=== PATIENT | male | born 1980 | race Two or more races ===

== ENCOUNTER 2021-09-25 18:26 | Emergency (ER) | payer MEDICAID ==
[~2021-09-25] VITALS: Ht 172.7 cm; Wt 104.3 kg
[2021-09-25] MEDS ORDERED: MAGNESIUM SULFATE 1 GM/D5W 100 ML IVPB IV ONE ×2 (18:33→20:54)
[2021-09-25] MEDS ORDERED: TRILEPTAL (18:37)
[2021-09-25] MEDS ORDERED: ALBU8HFA4 (18:37)
[2021-09-25] MEDS ORDERED: KEPPRA (18:37)
[2021-09-25 18:47] LABS: HEMATOCRIT 44.8 % (36.7-47.1); MEAN CORPUSCULAR VOLUME 94.6 fL (73.0-96.2); PLATELET COUNT (AUTO) 337 K/uL (152-348)
--- NOTE | 2021-09-25 18:57 | NUR ---
PT IS IN ROOM #1A. DR MIRANDA EVALUATED THE PT.
--- NOTE | 2021-09-25 19:00 | NUR ---
Report received from Daniel CASTANEDA. Patient AAO, NAD noted.
[2021-09-25 19:01] LABS: MAGNESIUM 1.9 mg/dL (1.8-2.4)
--- NOTE | 2021-09-25 20:30 | NUR ---
Spoke to Emilie in the lab re: Valproic Acid level. Doyle said test was just sent to [facility] and results will not be available for awhile.
[2021-09-25] MEDS: MAGNESIUM SULFATE/D5W 100 ML IV SCH ×2 (20:56→22:07)
--- NOTE | 2021-09-25 21:25 | NUR ---
Patient requesting for something to eat. [place], juice given; ate well.
[2021-09-25] MEDS ORDERED: LORA2TAB95 PO (22:49)
[2021-09-25] MEDS ORDERED: ALBU18HF2 INH (22:49)
--- NOTE | 2021-09-25 23:00 | NUR ---
Patient provided cab ride voucher. Discharged to home in stable condition. Written and verbal after care instructions given. Patient verbalizes understanding of instructions. Stressed follow up or return to ER for worsening s/s.
[2021-09-25 23:03] VITALS: BP 103/70
== END 2021-09-25 23:04 | disposition home or self-care (01) ==
LOC: ER 18:32
DX: G40.909 Epilepsy, unspecified, not intractable, without status epilepticus (principal); J45.909 Unspecified asthma, uncomplicated; Z79.899 Other long term (current) drug therapy; Z86.03 Personal history of neoplasm of uncertain behavior
CPT/HCPCS: 36415; 80048; 80164; 83735; 85025; 99283; J3475; A4663